=== PATIENT | male | born 1950 | race Caucasian/White ===

== ENCOUNTER 2017-07-11 21:23 | Inpatient (IN) | payer BC ==
[~2017-07-11] VITALS: Ht 180.3 cm; Wt 108.0 kg
[~2017-07-11 21:23] MED LIST: ALEVE220 M2 PO; ALEVE220 MG PO; BENADRYL25 MG PO; DULERA 100 MCG/13 GM IH; FEOSOL325 MG PO; FLONASE ALLERG9.9 ML BOTH NARES; FLOVENT DISKUS1 DIS2 IH; HYDROCHLOROTHIA25 MG PO; LO-DOSE ASPIRIN81 M1 PO; MELATONIN5 M1 PO; OXYCODONE HCL5 MG PO; POTASSIUM CITR10 MEQ PO; SENNA PLUS TAB1 EACH PO; VENTOLIN HFA18 GM IH; XARELTO10 MG PO; ZYRTEC10 M2 PO
[2017-07-12 05:51] VITALS: BP 178/90
[2017-07-12 11:00] VITALS: BP 129/79
[2017-07-12 14:30] VITALS: BP 125/75
[2017-07-12 17:30] VITALS: BP 131/72
[2017-07-12 20:12] VITALS: BP 131/79
[2017-07-12 22:09] VITALS: BP 135/82
[2017-07-13] VITALS: BP 131/78
[2017-07-13 04:25] VITALS: BP 138/80
[2017-07-13 06:00] LABS: ANION GAP 7 MEQ/L (2-14); CHLORIDE 102 MEQ/L (99-109); GFR ESTIMATE (CALCULATED) > 59 mL/min/; GLUCOSE 98 mg/dL (70-99); POTASSIUM 4.1 MEQ/L (3.7-5.4); SAMPLE HEMOLYSIS CHECK 0; SAMPLE ICTERIC CHECK 0; SAMPLE LIPEMIA CHECK 0; SODIUM 136 MEQ/L (136-147); UREA NITROGEN (BUN) 13 mg/dL (9-23)
[2017-07-13 08:00] VITALS: BP 159/83
[2017-07-13 09:17] LABS: HEMATOCRIT 42.1 % (38.0-50.0); MCV 90.3 FL (86-99)
[2017-07-13] MEDS ORDERED: DOCUSATE SODIU100 MG PO (09:46)
[2017-07-13] MEDS ORDERED: OXYCODONE HCL5 MG PO (09:46)
[2017-07-13] MEDS ORDERED: ELIQUIS2.5 MG PO (09:46)
[2017-07-13 12:00] VITALS: BP 154/85
[2017-07-13 16:07] VITALS: BP 141/91
[2017-07-13 19:57] VITALS: BP 143/84
[2017-07-14 00:20] VITALS: BP 154/88
[2017-07-14 03:35] VITALS: BP 145/77
[2017-07-14 07:30] VITALS: BP 152/72
[2017-07-14 11:18] VITALS: BP 133/79
== END 2017-07-14 14:54 | DRG 470 ==
LOC: ENRESERV 21:23 → 2SOUTH 07-12 05:20 → 3WEST 07-12 05:20 → 2SOUTH 07-12 08:04 → ENRESERV 07-12 09:20 → 2SOUTH 07-12 10:03 → 3WEST 07-12 10:34 → 2SOUTH 07-12 10:37 → 3WEST 07-14 14:54
PROVIDERS: Orthopaedic Surgery; Physician Assistant
PROC: 0SRC0J9 Replacement of Right Knee Joint with Synthetic Substitute, Cemented, Open Approach (ICD-10-PCS; principal; 2017-07-12)
DX: M17.11 Unilateral primary osteoarthritis, right knee (principal); K59.03 Drug induced constipation; M22.41 Chondromalacia patellae, right knee; E66.9 Obesity, unspecified; J30.1 Allergic rhinitis due to pollen; Z96.652 Presence of left artificial knee joint; N40.0 Benign prostatic hyperplasia without lower urinary tract symptoms; I10 Essential (primary) hypertension; Z68.33 Body mass index [BMI] 33.0-33.9, adult; Z88.0 Allergy status to penicillin; Z87.442 Personal history of urinary calculi; Z82.49 Family history of ischemic heart disease and other diseases of the circulatory system
CPT/HCPCS: 80048; 85014; 85018; 94640 76; 97530 GO; 99202; C1713; J0131; J1885; J2250; J2405; J2765; J3010; J7050; J7120; L1820; S0020